=== PATIENT | female | born 1980 | race Caucasian/White ===

== ENCOUNTER 2021-08-20 14:14 | Emergency (ER) | payer SELFPAY ==
[2021-08-20 14:42] VITALS: BP 131/74; PULSE 104; RESP 22; TEMP 37.1; O2SAT 100
--- NOTE | 2021-08-20 14:43 | ED_ITS ---
HPI - Psych <Sandy Wilton Israel DO - Last Filed: 08/21/21 11:34> General Chief Complaint: Psychiatric Symptoms Stated Complaint: Found God, High BP Time Seen by Provider: 08/20/21 14:42 Source: patient and EMS ([facility]. BS 534 in field.) Mode of arrival: Ambulatory Limitations: no limitations History of Present Illness HPI Narrative: This is a 41-year-old female with no known medical history who lives in [place] who is visiting the area with her significant other. Patient was found rolling around in the road on [facility] by [facility] was contacted they states she had a put care glucose of 534 but otherwise had normal vital signs. They state patient's affect does not appear inappropriate but she could not really tell them why she was feeling the way she was today. Patient here in the department states that she feels fine. She states she found God and everybody seems upset about this. Patient states she does not have any thoughts of harming herself or others, she denies any hallucinations or auditory changes. She denies medical issues, denies prior surgeries. No known drug allergies. She denies tobacco, alcohol or illicit. She states she is been traveling through the area on a road trip with her significant other. Patient became agitated in triage ran out into the parking lot and PD was contacted to keep her from running out into traffic she was felt not able to keep herself safe. Review of Systems <Sandy Wilton Israel DO - Last Filed: 08/21/21 11:34> Review of Systems ROS Unobtainable: All systems reviewed & are unremarkable except as noted in HPI and below Exam <Sandy Israel DO - Last Filed: 08/21/21 11:34> Narrative Exam Narrative: GEN: Disheveled female, alert and oriented to self, patient is unsure of the town she is in but she did just come via [place] she states she was not aware of what town she was coming to, she does not answer to questions about the year or date, patient appears to be in moderate distress. Patient is slightly agitated and requires significant redirection at times. She has concise speech. Patient does appear to constantly pick at her scalp. HEENT: Atraumatic, pupils are equal round reactive to light, extraocular movements are intact, nares are clear, TMs are clear with no fluid, there is no conjunctival pallor. Throat is clear without any exudates, erythema, tonsillar enlargement or uvular deviation HEART: Regular rate and rhythm without murmur, clicks, rubs. LUNGS:Lungs clear to auscultation, no wheezes, rales, crackles, chest moves symmetrically ABD:bowel sounds normal, soft, non-tender, no guarding, rebound, rigidity, no masses noted, no hepatosplenomegaly :No CVA tenderness MSCL: Non-tender, no muscle atrophy, muscles strength 5/5 upper and lower extremities, full range of motion, normal gait NEURO:CN 2-12 intact, sensation normal PSYCH: Denies suicidal homicidal ideation, denies any mental health issues. Patient does appear somewhat agitated. Denies any hallucinations. She has slightly pressured speech, she has concise speech but is a little bit tangential in her thoughts but no perseverating or flight of ideas. Initial Vital Signs Initial Vital Signs: Vital Signs Temperature 98.7 F 08/20/21 14:42 Pulse Rate 104 H 08/20/21 14:42 Respiratory Rate 08/20/21 14:42 Blood Pressure 131/74 08/20/21 14:42 Pulse Oximetry 100 08/20/21 14:42 Oxygen Delivery Method 08/20/21 14:42 <Bobby Lora, DO - Last Filed: 08/21/21 18:44> Initial Vital Signs Initial Vital Signs: Vital Signs Temperature 98.7 F 08/20/21 14:42 Pulse Rate 104 H 08/20/21 14:42 Respiratory Rate 08/20/21 14:42 Blood Pressure 131/74 08/20/21 14:42 Pulse Oximetry 100 08/20/21 14:42 Oxygen Delivery Method 08/20/21 14:42 <Irina Boo, DO - Last Filed: 08/21/21 17:43> Initial Vital Signs Initial Vital Signs: Vital Signs Temperature 98.7 F 08/20/21 14:42 Pulse Rate 104 H 08/20/21 14:42 Respiratory Rate 08/20/21 14:42 Blood Pressure 131/74 08/20/21 14:42 Pulse Oximetry 100 08/20/21 14:42 Oxygen Delivery Method 08/20/21 14:42 Course <Sandy Israel, DO - Last Filed: 08/21/21 11:34> Orders Ordered: Discontinued Medications Lorazepam (Lorazepam 0.5 Mg Tablet) 1 mg PO NOW ONE Stop: 08/21/21 00:03 Last Admin: 08/21/21 00:06 Dose: 1 mg Documented By: RENA Olanzapine (Olanzapine Odt 10 Mg Tab) 10 mg PO NOW ONE Stop: 08/20/21 14:43 Last Admin: 08/20/21 14:46 Dose: 10 mg Documented By: JUAN Vital Signs Vital signs: Vital Signs - 8 hr 08/21/21 11:30 08/21/21 13:00 Temperature 99 F 98.7 F Pulse Rate 62 68 Respiratory Rate 20 20 Blood Pressure 101/60 120/67 Pulse Oximetry 99 99 Oxygen Delivery Method Room Air Room Air <Bobby Lora, DO - Last Filed: 08/21/21 18:44> Orders Ordered: Discontinued Medications Lorazepam (Lorazepam 0.5 Mg Tablet) 1 mg PO NOW ONE Stop: 08/21/21 00:03 Last Admin: 08/21/21 00:06 Dose: 1 mg Documented By: RENA Olanzapine (Olanzapine Odt 10 Mg Tab) 10 mg PO NOW ONE Stop: 08/20/21 14:43 Last Admin: 08/20/21 14:46 Dose: 10 mg Documented By: JUAN Vital Signs Vital signs: Vital Signs - 8 hr 08/21/21 11:30 08/21/21 13:00 Temperature 99 F 98.7 F Pulse Rate 62 68 Respiratory Rate 20 20 Blood Pressure 101/60 120/67 Pulse Oximetry 99 99 Oxygen Delivery Method Room Air Room Air <Irina Boo DO - Last Filed: 08/21/21 17:43> Orders Ordered: Discontinued Medications Lorazepam (Lorazepam 0.5 Mg Tablet) 1 mg PO NOW ONE Stop: 08/21/21 00:03 Last Admin: 08/21/21 00:06 Dose: 1 mg Documented By: RENA Olanzapine (Olanzapine Odt 10 Mg Tab) 10 mg PO NOW ONE Stop: 08/20/21 14:43 Last Admin: 08/20/21 14:46 Dose: 10 mg Documented By: JUAN Vital Signs Vital signs: Vital Signs - 8 hr 08/21/21 11:30 08/21/21 13:00 Temperature 99 F 98.7 F Pulse Rate 62 68 Respiratory Rate 20 20 Blood Pressure 101/60 120/67 Pulse Oximetry 99 99 Oxygen Delivery Method Room Air Room Air MDM - Psych <Sandy Israel, DO - Last Filed: 08/21/21 11:34> Lab Data Result diagrams: 08/20/21 15:09 08/20/21 15:09 Labs: Lab Results 08/20/21 08/20/21 08/20/21 Range/Units 15:09 15:09 15:09 WBC 7.0 (4.5-11.0) X10^3/uL RBC 3.83 L (4.0-5.2) X10^6/uL Hgb 9.8 L (12.0-16.0) g/dL Hct 30.3 L (36-46) % MCV 79.1 L (80-100) fL MCH 25.6 L (26-34) PG MCHC 32.4 (30-36) % RDW 16.5 H (11.6-14.8) % Plt Count 352 (150-400) X10^3/uL Neut % (Auto) 68.5 (50-75) % Lymph % (Auto) 20.4 L (25-40) % [place] % (Auto) 9.9 (3-14) % Eos % (Auto) 0.4 L (2-4) % Baso % (Auto) 0.8 (0-2) % Neut # (Auto) 4800 (8838-1231) /uL Lymph # (Auto) 1400 (9855-9535) /uL [place] # (Auto) 700 (0-900) /uL Eos # (Auto) 0 (0-450) /uL Baso # (Auto) 100 (0-100) /uL Sodium 138 (137-145) mmol/L Potassium 3.4 (3.4-5.1) mmol/L Chloride 103 (98-107) mmol/L Carbon Dioxide 27 (22-32) mmol/L BUN 10 (7-17) mg/dL Creatinine 0.78 (0.52-1.04) mg/dL Estimated GFR > 60 (>60) mL/min BUN/Creatinine Ratio 12.8 (6-22) Glucose 135 H (70-100) mg/dL Calcium 9.3 (8.4-10.2) mg/dL Magnesium (1.6-2.3) mg/dL Total Bilirubin 0.4 (0.2-1.3) mg/dL AST 31 (14-36) IU/L ALT 19 (<35) IU/L Alkaline Phosphatase 55 (38-126) U/L Total Creatine Kinase (30-135) U/L Total Protein 7.3 (6.3-8.2) g/dL Albumin 4.6 (3.5-5.0) g/dL Globulin 2.7 (1.7-4.1) g/dL Albumin/Globulin Ratio 1.7 (1.0-2.8) TSH 1.30 (0.47-4.68) uIU/mL Serum , Qual (Negative) Urine RBC (0-5/HPF) Urine WBC (0-5/HPF) Ur Squamous Epith Cells (0-5/HPF) Amorphous Sediment Urine Bacteria (None) Urine Mucus (Negative) Ur Culture Indicated? Salicylates < 1.0 (<20) mg/dL U Opiates 300ng/mL cut (Negative) Ur Oxycodone Screen (Negative) Urine Methadone Screen (Negative) Acetaminophen < 10 (10-30) ug/mL Ur Barbiturates Screen (Negative) U Tricyclic Antidepress (Negative) Ur Phencyclidine Scrn (Negative) Ur Amphetamines Screen (Negative) U Methamphetamines Scrn (Negative) Ur MDMA Scrn (Ecstasy) (Negative) U Benzodiazepines Scrn (Negative) Urine Cocaine Screen (Negative) U Marijuana (THC) Screen (Negative) Ethyl Alcohol < 10 ( - 10) mg/dL SARS-CoV-2 (PCR) (Negative) 08/20/21 08/20/21 08/20/21 Range/Units 15:09 15:09 15:23 WBC (4.5-11.0) X10^3/uL RBC (4.0-5.2) X10^6/uL Hgb (12.0-16.0) g/dL Hct (36-46) % MCV (80-100) fL MCH (26-34) PG MCHC (30-36) % RDW (11.6-14.8) % Plt Count (150-400) X10^3/uL Neut % (Auto) (50-75) % Lymph % (Auto) (25-40) % [place] % (Auto) (3-14) % Eos % (Auto) (2-4) % Baso % (Auto) (0-2) % Neut # (Auto) (2321-4344) /uL Lymph # (Auto) (2815-8169) /uL [place] # (Auto) (0-900) /uL Eos # (Auto) (0-450) /uL Baso # (Auto) (0-100) /uL Sodium (137-145) mmol/L Potassium (3.4-5.1) mmol/L Chloride (98-107) mmol/L Carbon Dioxide (22-32) mmol/L BUN (7-17) mg/dL Creatinine (0.52-1.04) mg/dL Estimated GFR (>60) mL/min BUN/Creatinine Ratio (6-22) Glucose (70-100) mg/dL Calcium (8.4-10.2) mg/dL Magnesium 1.9 (1.6-2.3) mg/dL Total Bilirubin (0.2-1.3) mg/dL AST (14-36) IU/L ALT (<35) IU/L Alkaline Phosphatase (38-126) U/L Total Creatine Kinase 382 H (30-135) U/L Total Protein (6.3-8.2) g/dL Albumin (3.5-5.0) g/dL Globulin (1.7-4.1) g/dL Albumin/Globulin Ratio (1.0-2.8) TSH (0.47-4.68) uIU/mL Serum , Qual Negative (Negative) Urine RBC (0-5/HPF) Urine WBC (0-5/HPF) Ur Squamous Epith Cells (0-5/HPF) Amorphous Sediment Urine Bacteria (None) Urine Mucus (Negative) Ur Culture Indicated? Salicylates (<20) mg/dL U Opiates 300ng/mL cut Negative (Negative) Ur Oxycodone Screen Negative (Negative) Urine Methadone Screen Negative (Negative) Acetaminophen (10-30) ug/mL Ur Barbiturates Screen Negative (Negative) U Tricyclic Antidepress Negative (Negative) Ur Phencyclidine Scrn Negative (Negative) Ur Amphetamines Screen Negative (Negative) U Methamphetamines Scrn Negative (Negative) Ur MDMA Scrn (Ecstasy) Negative (Negative) U Benzodiazepines Scrn Negative (Negative) Urine Cocaine Screen Negative (Negative) U Marijuana (THC) Screen Negative (Negative) Ethyl Alcohol ( - 10) mg/dL SARS-CoV-2 (PCR) (Negative) 08/20/21 08/20/21 Range/Units 15:23 20:17 WBC (4.5-11.0) X10^3/uL RBC (4.0-5.2) X10^6/uL Hgb (12.0-16.0) g/dL Hct (36-46) % MCV (80-100) fL MCH (26-34) PG MCHC (30-36) % RDW (11.6-14.8) % Plt Count (150-400) X10^3/uL Neut % (Auto) (50-75) % Lymph % (Auto) (25-40) % [place] % (Auto) (3-14) % Eos % (Auto) (2-4) % Baso % (Auto) (0-2) % Neut # (Auto) (4376-8702) /uL Lymph # (Auto) (0106-0774) /uL [place] # (Auto) (0-900) /uL Eos # (Auto) (0-450) /uL Baso # (Auto) (0-100) /uL Sodium (137-145) mmol/L Potassium (3.4-5.1) mmol/L Chloride (98-107) mmol/L Carbon Dioxide (22-32) mmol/L BUN (7-17) mg/dL Creatinine (0.52-1.04) mg/dL Estimated GFR (>60) mL/min BUN/Creatinine Ratio (6-22) Glucose (70-100) mg/dL Calcium (8.4-10.2) mg/dL Magnesium (1.6-2.3) mg/dL Total Bilirubin (0.2-1.3) mg/dL AST (14-36) IU/L ALT (<35) IU/L Alkaline Phosphatase (38-126) U/L Total Creatine Kinase (30-135) U/L Total Protein (6.3-8.2) g/dL Albumin (3.5-5.0) g/dL Globulin (1.7-4.1) g/dL Albumin/Globulin Ratio (1.0-2.8) TSH (0.47-4.68) uIU/mL Serum , Qual (Negative) Urine RBC None seen (0-5/HPF) Urine WBC 1-5/hpf (0-5/HPF) Ur Squamous Epith Cells 10-30 /hpf H (0-5/HPF) Amorphous Sediment 1+ Urine Bacteria Few (2-10) H (None) Urine Mucus 1+ H (Negative) Ur Culture Indicated? Cult not indicated Salicylates (<20) mg/dL U Opiates 300ng/mL cut (Negative) Ur Oxycodone Screen (Negative) Urine Methadone Screen (Negative) Acetaminophen (10-30) ug/mL Ur Barbiturates Screen (Negative) U Tricyclic Antidepress (Negative) Ur Phencyclidine Scrn (Negative) Ur Amphetamines Screen (Negative) U Methamphetamines Scrn (Negative) Ur MDMA Scrn (Ecstasy) (Negative) U Benzodiazepines Scrn (Negative) Urine Cocaine Screen (Negative) U Marijuana (THC) Screen (Negative) Ethyl Alcohol ( - 10) mg/dL SARS-CoV-2 (PCR) Negative (Negative) Point of Care Testing Test Results Negative Glucose POC 133 Urine Dip Bedside Urine Glucose Negative Bedside Urine Bilirubin - Negative Bedside Urine Ketone - Negative Urine Specific [place] 1.015 Bedside Urine Occult Blood - Negative Bedside Urine pH 6.5 Bedside Urine Protein +/- 15 Bedside Urine Urobilinogen - Negative Bedside Urine Nitrite - Negative Bedside Urine Leukocytes - Negative Esterase MDM Narrative Medical decision making narrative: This is a 41-year-old female who states she found God and was forced to come here. She was found by EMS in the middle of the road rolling around, they state her glucose is elevated at 500 felt likely this was air as her glucose here in the 130s on serum which is much more appropriate. Patient unclear if she is having true hallucinations but definitely having magical medical type thinking abruptly which is very atypical and concern for safety in terms of being gravely disabled. Patient did take Zyprexa but only under duress which does seem to be somewhat helpful. She has anemia but no other clear cause for her symptoms today, her urine drug screen is negative in both she and her significant other Jonathan deny ingestions. Patient lives in [place] they have been traveling for the past 3 months in a van and are somewhat isolated from other individuals. The boyfriend states that her brother and father are both and she does not have contact with her mother so I do not have other contacts available but they have been dating for the boyfriend for 6 years. DC are was dispatched evaluated patient would like to re-evaluate this is evaluation about an hour after patient has had some more contact with her boyfriend. Boyfriend was in t he department for about 5-10 minutes the situation escalated and they both began cursing and yelling at each other they were he went back to the waiting room. Patient signed out to Dr. Lora while awaiting final disposition, patient has been redirectable but does not wish to be here. <Bobby Lora, DO - Last Filed: 08/21/21 18:44> Lab Data Labs: Lab Results 08/20/21 08/20/21 08/20/21 Range/Units 15:09 15:09 15:09 WBC 7.0 (4.5-11.0) X10^3/uL RBC 3.83 L (4.0-5.2) X10^6/uL Hgb 9.8 L (12.0-16.0) g/dL Hct 30.3 L (36-46) % MCV 79.1 L (80-100) fL MCH 25.6 L (26-34) PG MCHC 32.4 (30-36) % RDW 16.5 H (11.6-14.8) % Plt Count 352 (150-400) X10^3/uL Neut % (Auto) 68.5 (50-75) % Lymph % (Auto) 20.4 L (25-40) % [place] % (Auto) 9.9 (3-14) % Eos % (Auto) 0.4 L (2-4) % Baso % (Auto) 0.8 (0-2) % Neut # (Auto) 4800 (3085-5992) /uL Lymph # (Auto) 1400 (1057-4508) /uL [place] # (Auto) 700 (0-900) /uL Eos # (Auto) 0 (0-450) /uL Baso # (Auto) 100 (0-100) /uL Sodium 138 (137-145) mmol/L Potassium 3.4 (3.4-5.1) mmol/L Chloride 103 (98-107) mmol/L Carbon Dioxide 27 (22-32) mmol/L BUN 10 (7-17) mg/dL Creatinine 0.78 (0.52-1.04) mg/dL Estimated GFR > 60 (>60) mL/min BUN/Creatinine Ratio 12.8 (6-22) Glucose 135 H (70-100) mg/dL Calcium 9.3 (8.4-10.2) mg/dL Magnesium (1.6-2.3) mg/dL Total Bilirubin 0.4 (0.2-1.3) mg/dL AST 31 (14-36) IU/L ALT 19 (<35) IU/L Alkaline Phosphatase 55 (38-126) U/L Total Creatine Kinase (30-135) U/L Total Protein 7.3 (6.3-8.2) g/dL Albumin 4.6 (3.5-5.0) g/dL Globulin 2.7 (1.7-4.1) g/dL Albumin/Globulin Ratio 1.7 (1.0-2.8) TSH 1.30 (0.47-4.68) uIU/mL Serum , Qual (Negative) Urine RBC (0-5/HPF) Urine WBC (0-5/HPF) Ur Squamous Epith Cells (0-5/HPF) Amorphous Sediment Urine Bacteria (None) Urine Mucus (Negative) Ur Culture Indicated? Salicylates < 1.0 (<20) mg/dL U Opiates 300ng/mL cut (Negative) Ur Oxycodone Screen (Negative) Urine Methadone Screen (Negative) Acetaminophen < 10 (10-30) ug/mL Ur Barbiturates Screen (Negative) U Tricyclic Antidepress (Negative) Ur Phencyclidine Scrn (Negative) Ur Amphetamines Screen (Negative) U Methamphetamines Scrn (Negative) Ur MDMA Scrn (Ecstasy) (Negative) U Benzodiazepines Scrn (Negative) Urine Cocaine Screen (Negative) U Marijuana (THC) Screen (Negative) Ethyl Alcohol < 10 ( - 10) mg/dL SARS-CoV-2 (PCR) (Negative) 08/20/21 08/20/21 08/20/21 Range/Units 15:09 15:09 15:23 WBC (4.5-11.0) X10^3/uL RBC (4.0-5.2) X10^6/uL Hgb (12.0-16.0) g/dL Hct (36-46) % MCV (80-100) fL MCH (26-34) PG MCHC (30-36) % RDW (11.6-14.8) % Plt Count (150-400) X10^3/uL Neut % (Auto) (50-75) % Lymph % (Auto) (25-40) % [place] % (Auto) (3-14) % Eos % (Auto) (2-4) % Baso % (Auto) (0-2) % Neut # (Auto) (7794-0512) /uL Lymph # (Auto) (1529-0971) /uL [place] # (Auto) (0-900) /uL Eos # (Auto) (0-450) /uL Baso # (Auto) (0-100) /uL Sodium (137-145) mmol/L Potassium (3.4-5.1) mmol/L Chloride (98-107) mmol/L Carbon Dioxide (22-32) mmol/L BUN (7-17) mg/dL Creatinine (0.52-1.04) mg/dL Estimated GFR (>60) mL/min BUN/Creatinine Ratio (6-22) Glucose (70-100) mg/dL Calcium (8.4-10.2) mg/dL Magnesium 1.9 (1.6-2.3) mg/dL Total Bilirubin (0.2-1.3) mg/dL AST (14-36) IU/L ALT (<35) IU/L Alkaline Phosphatase (38-126) U/L Total Creatine Kinase 382 H (30-135) U/L Total Protein (6.3-8.2) g/dL Albumin (3.5-5.0) g/dL Globulin (1.7-4.1) g/dL Albumin/Globulin Ratio (1.0-2.8) TSH (0.47-4.68) uIU/mL Serum , Qual Negative (Negative) Urine RBC (0-5/HPF) Urine WBC (0-5/HPF) Ur Squamous Epith Cells (0-5/HPF) Amorphous Sediment Urine Bacteria (None) Urine Mucus (Negative) Ur Culture Indicated? Salicylates (<20) mg/dL U Opiates 300ng/mL cut Negative (Negative) Ur Oxycodone Screen Negative (Negative) Urine Methadone Screen Negative (Negative) Acetaminophen (10-30) ug/mL Ur Barbiturates Screen Negative (Negative) U Tricyclic Antidepress Negative (Negative) Ur Phencyclidine Scrn Negative (Negative) Ur Amphetamines Screen Negative (Negative) U Methamphetamines Scrn Negative (Negative) Ur MDMA Scrn (Ecstasy) Negative (Negative) U Benzodiazepines Scrn Negative (Negative) Urine Cocaine Screen Negative (Negative) U Marijuana (THC) Screen Negative (Negative) Ethyl Alcohol ( - 10) mg/dL SARS-CoV-2 (PCR) (Negative) 08/20/21 08/20/21 Range/Units 15:23 20:17 WBC (4.5-11.0) X10^3/uL RBC (4.0-5.2) X10^6/uL Hgb (12.0-16.0) g/dL Hct (36-46) % MCV (80-100) fL MCH (26-34) PG MCHC (30-36) % RDW (11.6-14.8) % Plt Count (150-400) X10^3/uL Neut % (Auto) (50-75) % Lymph % (Auto) (25-40) % [place] % (Auto) (3-14) % Eos % (Auto) (2-4) % Baso % (Auto) (0-2) % Neut # (Auto) (5097-7833) /uL Lymph # (Auto) (3825-9144) /uL [place] # (Auto) (0-900) /uL Eos # (Auto) (0-450) /uL Baso # (Auto) (0-100) /uL Sodium (137-145) mmol/L Potassium (3.4-5.1) mmol/L Chloride (98-107) mmol/L Carbon Dioxide (22-32) mmol/L BUN (7-17) mg/dL Creatinine (0.52-1.04) mg/dL Estimated GFR (>60) mL/min BUN/Creatinine Ratio (6-22) Glucose (70-100) mg/dL Calcium (8.4-10.2) mg/dL Magnesium (1.6-2.3) mg/dL Total Bilirubin (0.2-1.3) mg/dL AST (14-36) IU/L ALT (<35) IU/L Alkaline Phosphatase (38-126) U/L Total Creatine Kinase (30-135) U/L Total Protein (6.3-8.2) g/dL Albumin (3.5-5.0) g/dL Globulin (1.7-4.1) g/dL Albumin/Globulin Ratio (1.0-2.8) TSH (0.47-4.68) uIU/mL Serum , Qual (Negative) Urine RBC None seen (0-5/HPF) Urine WBC 1-5/hpf (0-5/HPF) Ur Squamous Epith Cells 10-30 /hpf H (0-5/HPF) Amorphous Sediment 1+ Urine Bacteria Few (2-10) H (None) Urine Mucus 1+ H (Negative) Ur Culture Indicated? Cult not indicated Salicylates (<20) mg/dL U Opiates 300ng/mL cut (Negative) Ur Oxycodone Screen (Negative) Urine Methadone Screen (Negative) Acetaminophen (10-30) ug/mL Ur Barbiturates Screen (Negative) U Tricyclic Antidepress (Negative) Ur Phencyclidine Scrn (Negative) Ur Amphetamines Screen (Negative) U Methamphetamines Scrn (Negative) Ur MDMA Scrn (Ecstasy) (Negative) U Benzodiazepines Scrn (Negative) Urine Cocaine Screen (Negative) U Marijuana (THC) Screen (Negative) Ethyl Alcohol ( - 10) mg/dL SARS-CoV-2 (PCR) Negative (Negative) Point of Care Testing Test Results Negative Glucose POC 133 Urine Dip Bedside Urine Glucose Negative Bedside Urine Bilirubin - Negative Bedside Urine Ketone - Negative Urine Specific [place] 1.015 Bedside Urine Occult Blood - Negative Bedside Urine pH 6.5 Bedside Urine Protein +/- 15 Bedside Urine Urobilinogen - Negative Bedside Urine Nitrite - Negative Bedside Urine Leukocytes - Negative Esterase MDM Narrative Medical decision making narrative: This is a 41-year-old female who states she found God and was forced to come here. She was found by EMS in the middle of the road rolling around, they state her glucose is elevated at 500 felt likely this was air as her glucose here in the 130s on serum which is much more appropriate. Patient unclear if she is having true hallucinations but definitely having magical medical type thinking abruptly which is very atypical and concern for safety in terms of being gravely disabled. Patient did take Zyprexa but only under duress which does seem to be somewhat helpful. She has anemia but no other clear cause for her symptoms today, her urine drug screen is negative in both she and her significant other Jonathan deny ingestions. Patient lives in [place] they have been traveling for the past 3 months in a van and are somewhat isolated from other individuals. The boyfriend states that her brother and father are both and she does not have contact with her mother so I do not have other contacts available but they have been dating for the boyfriend for 6 years. DC are was dispatched evaluated patient would like to re-evaluate this is evaluation about an hour after patient has had some more contact with her boyfriend. Boyfriend was in the department for about 5-10 minutes the situation escalated and they both began cursing and yelling at each other they were he went back to the waiting room. Patient signed out to Dr. Lora while awaiting final disposition, patient has been redirectable but does not wish to be here. Dr Lora: Received turned over. Review patient's history and physical exam. Patient has been calm although that 1 point she did try to leave the emergency department. She was easily directable afterwards. She was given 1 mg of Ativan which she took without incident. Patient has been sleeping all evening. I had conversations with DCR who stated that the patient does need to be detained. There was some concern between the patient and the DCR about her ability to maintain safety upon discharge. DCR has been working on placement. Patient continues to be medically cleared. Care turned over to Dr. Boo at change of shift to continue to follow-up and disposition. <Irnia Boo, DO - Last Filed: 08/21/21 17:43> Lab Data Labs: Lab Results 08/20/21 08/20/21 08/20/21 Range/Units 15:09 15:09 15:09 WBC 7.0 (4.5-11.0) X10^3/uL RBC 3.83 L (4.0-5.2) X10^6/uL Hgb 9.8 L (12.0-16.0) g/dL Hct 30.3 L (36-46) % MCV 79.1 L (80-100) fL MCH 25.6 L (26-34) PG MCHC 32.4 (30-36) % RDW 16.5 H (11.6-14.8) % Plt Count 352 (150-400) X10^3/uL Neut % (Auto) 68.5 (50-75) % Lymph % (Auto) 20.4 L (25-40) % [place] % (Auto) 9.9 (3-14) % Eos % (Auto) 0.4 L (2-4) % Baso % (Auto) 0.8 (0-2) % Neut # (Auto) 4800 (2039-5172) /uL Lymph # (Auto) 1400 (0588-9569) /uL [place] # (Auto) 700 (0-900) /uL Eos # (Auto) 0 (0-450) /uL Baso # (Auto) 100 (0-100) /uL Sodium 138 (137-145) mmol/L Potassium 3.4 (3.4-5.1) mmol/L Chloride 103 (98-107) mmol/L Carbon Dioxide 27 (22-32) mmol/L BUN 10 (7-17) mg/dL Creatinine 0.78 (0.52-1.04) mg/dL Estimated GFR > 60 (>60) mL/min BUN/Creatinine Ratio 12.8 (6-22) Glucose 135 H (70-100) mg/dL Calcium 9.3 (8.4-10.2) mg/dL Magnesium (1.6-2.3) mg/dL Total Bilirubin 0.4 (0.2-1.3) mg/dL AST 31 (14-36) IU/L ALT 19 (<35) IU/L Alkaline Phosphatase 55 (38-126) U/L Total Creatine Kinase (30-135) U/L Total Protein 7.3 (6.3-8.2) g/dL Albumin 4.6 (3.5-5.0) g/dL Globulin 2.7 (1.7-4.1) g/dL Albumin/Globulin Ratio 1.7 (1.0-2.8) TSH 1.30 (0.47-4.68) uIU/mL Serum , Qual (Negative) Urine RBC (0-5/HPF) Urine WBC (0-5/HPF) Ur Squamous Epith Cells (0-5/HPF) Amorphous Sediment Urine Bacteria (None) Urine Mucus (Negative) Ur Culture Indicated? Salicylates < 1.0 (<20) mg/dL U Opiates 300ng/mL cut (Negative) Ur Oxycodone Screen (Negative) Urine Methadone Screen (Negative) Acetaminophen < 10 (10-30) ug/mL Ur Barbiturates Screen (Negative) U Tricyclic Antidepress (Negative) Ur Phencyclidine Scrn (Negative) Ur Amphetamines Screen (Negative) U Methamphetamines Scrn (Negative) Ur MDMA Scrn (Ecstasy) (Negative) U Benzodiazepines Scrn (Negative) Urine Cocaine Screen (Negative) U Marijuana (THC) Screen (Negative) Ethyl Alcohol < 10 ( - 10) mg/dL SARS-CoV-2 (PCR) (Negative) 08/20/21 08/20/21 08/20/21 Range/Units 15:09 15:09 15:23 WBC (4.5-11.0) X10^3/uL RBC (4.0-5.2) X10^6/uL Hgb (12.0-16.0) g/dL Hct (36-46) % MCV (80-100) fL MCH (26-34) PG MCHC (30-36) % RDW (11.6-14.8) % Plt Count (150-400) X10^3/uL Neut % (Auto) (50-75) % Lymph % (Auto) (25-40) % [place] % (Auto) (3-14) % Eos % (Auto) (2-4) % Baso % (Auto) (0-2) % Neut # (Auto) (2089-5329) /uL Lymph # (Auto) (4412-8999) /uL Columbia # (Auto) (0-900) /uL Eos # (Auto) (0-450) /uL Baso # (Auto) (0-100) /uL Sodium (137-145) mmol/L Potassium (3.4-5.1) mmol/L Chloride (98-107) mmol/L Carbon Dioxide (22-32) mmol/L BUN (7-17) mg/dL Creatinine (0.52-1.04) mg/dL Estimated GFR (>60) mL/min BUN/Creatinine Ratio (6-22) Glucose (70-100) mg/dL Calcium (8.4-10.2) mg/dL Magnesium 1.9 (1.6-2.3) mg/dL Total Bilirubin (0.2-1.3) mg/dL AST (14-36) IU/L ALT (<35) IU/L Alkaline Phosphatase (38-126) U/L Total Creatine Kinase 382 H (30-135) U/L Total Protein (6.3-8.2) g/dL Albumin (3.5-5.0) g/dL Globulin (1.7-4.1) g/dL Albumin/Globulin Ratio (1.0-2.8) TSH (0.47-4.68) uIU/mL Serum , Qual Negative (Negative) Urine RBC (0-5/HPF) Urine WBC (0-5/HPF) Ur Squamous Epith Cells (0-5/HPF) Amorphous Sediment Urine Bacteria (None) Urine Mucus (Negative) Ur Culture Indicated? Salicylates (<20) mg/dL U Opiates 300ng/mL cut Negative (Negative) Ur Oxycodone Screen Negative (Negative) Urine Methadone Screen Negative (Negative) Acetaminophen (10-30) ug/mL Ur Barbiturates Screen Negative (Negative) U Tricyclic Antidepress Negative (Negative) Ur Phencyclidine Scrn Negative (Negative) Ur Amphetamines Screen Negative (Negative) U Methamphetamines Scrn Negative (Negative) Ur MDMA Scrn (Ecstasy) Negative (Negative) U Benzodiazepines Scrn Negative (Negative) Urine Cocaine Screen Negative (Negative) U Marijuana (THC) Screen Negative (Negative) Ethyl Alcohol ( - 10) mg/dL SARS-CoV-2 (PCR) (Negative) 08/20/21 08/20/21 Range/Units 15:23 20:17 WBC (4.5-11.0) X10^3/uL RBC (4.0-5.2) X10^6/uL Hgb (12.0-16.0) g/dL Hct (36-46) % MCV (80-100) fL MCH (26-34) PG MCHC (30-36) % RDW (11.6-14.8) % Plt Count (150-400) X10^3/uL Neut % (Auto) (50-75) % Lymph % (Auto) (25-40) % [place] % (Auto) (3-14) % Eos % (Auto) (2-4) % Baso % (Auto) (0-2) % Neut # (Auto) (0563-9822) /uL Lymph # (Auto) (4619-7463) /uL Columbia # (Auto) (0-900) /uL Eos # (Auto) (0-450) /uL Baso # (Auto) (0-100) /uL Sodium (137-145) mmol/L Potassium (3.4-5.1) mmol/L Chloride (98-107) mmol/L Carbon Dioxide (22-32) mmol/L BUN (7-17) mg/dL Creatinine (0.52-1.04) mg/dL Estimated GFR (>60) mL/min BUN/Creatinine Ratio (6-22) Glucose (70-100) mg/dL Calcium (8.4-10.2) mg/dL Magnesium (1.6-2.3) mg/dL Total Bilirubin (0.2-1.3) mg/dL AST (14-36) IU/L ALT (<35) IU/L Alkaline Phosphatase (38-126) U/L Total Creatine Kinase (30-135) U/L Total Protein (6.3-8.2) g/dL Albumin (3.5-5.0) g/dL Globulin (1.7-4.1) g/dL Albumin/Globulin Ratio (1.0-2.8) TSH (0.47-4.68) uIU/mL Serum , Qual (Negative) Urine RBC None seen (0-5/HPF) Urine WBC 1-5/hpf (0-5/HPF) Ur Squamous Epith Cells 10-30 /hpf H (0-5/HPF) Amorphous Sediment 1+ Urine Bacteria Few (2-10) H (None) Urine Mucus 1+ H (Negative) Ur Culture Indicated? Cult not indicated Salicylates (<20) mg/dL U Opiates 300ng/mL cut (Negative) Ur Oxycodone Screen (Negative) Urine Methadone Screen (Negative) Acetaminophen (10-30) ug/mL Ur Barbiturates Screen (Negative) U Tricyclic Antidepress (Negative) Ur Phencyclidine Scrn (Negative) Ur Amphetamines Screen (Negative) U Methamphetamines Scrn (Negative) Ur MDMA Scrn (Ecstasy) (Negative) U Benzodiazepines Scrn (Negative) Urine Cocaine Screen (Negative) U Marijuana (THC) Screen (Negative) Ethyl Alcohol ( - 10) mg/dL SARS-CoV-2 (PCR) Negative (Negative) Point of Care Testing Test Results Negative Glucose POC 133 Urine Dip Bedside Urine Glucose Negative Bedside Urine Bilirubin - Negative Bedside Urine Ketone - Negative Urine Specific [place] 1.015 Bedside Urine Occult Blood - Negative Bedside Urine pH 6.5 Bedside Urine Protein +/- 15 Bedside Urine Urobilinogen - Negative Bedside Urine Nitrite - Negative Bedside Urine Leukocytes - Negative Esterase Imaging Data CT scan - head: Radiologist's Impression: Signed Patient: Chloe Sharp MR#: [id number] : 1980 Acct:[id number] Age/Sex: 41 / F Date of Service: 08/21/21 Loc: ED Accession Number: [id number] ?? Procedure: CT head/brain wo con Ordering Provider: Irina Boo D.O. PROCEDURE:? CT HEAD/BRAIN WO CON ? INDICATIONS:? Psychotic break ? TECHNIQUE:? Noncontrast 4.5 mm thick angled axial sections acquired from the foramen magnum to the vertex, with coronal and sagittal reformats.? For radiation dose reduction, the following was used:? automated exposure control, adjustment of mA and/or kV according to patient size.? ? COMPARISON:? None. ? FINDINGS:? Image quality:? Excellent.? ? CSF spaces:? Basal cisterns are patent.? No extra-axial fluid collections.? Ventricles are normal in size and shape.? ? Brain:? No midline shift.? No intracranial masses or hemorrhage.? Hernández-white matter interface is normal.? ? Skull and face:? Calvarium and visualized facial bones are intact, without suspicious lesions.? ? Sinuses:? Visualized sinuses and mastoids are clear.? ? IMPRESSION:? Normal head CT. ? Dictated by: Ethan Adkins M.D. on 08/21/2021 at 9:36 ? ? Approved by: Ethan Adkins M.D. on 08/21/2021 at 9:39 ? MDM Narrative Medical decision making narrative: This is a 41-year-old female who states she found God and was forced to come here. She was found by EMS in the middle of the road rolling around, they state her glucose is elevated at 500 felt likely this was air as her glucose here in the 130s on serum which is much more appropriate. Patient unclear if she is having true hallucinations but definitely having magical medical type thinking abruptly which is very atypical and concern for safety in terms of being gravely disabled. Patient did take Zyprexa but only under duress which does seem to be somewhat helpful. She has anemia but no other clear cause for her symptoms today, her urine drug screen is negative in both she and her significant other Jonathan deny ingestions. Patient lives in [place] they have been traveling for the past 3 months in a van and are somewhat isolated from other individuals. The boyfriend states that her brother and father are both and she does not have contact with her mother so I do not have other contacts available but they have been dating for the boyfriend for 6 years. DC are was dispatched evaluated patient would like to re-evaluate this is evaluation about an hour after patient has had some more contact with her boyfriend. Boyfriend was in the department for about 5-10 minutes the situation escalated and they both began cursing and yelling at each other they were he went back to the waiting room. Patient signed out to Dr. Lora while awaiting final disposition, patient has been redirectable but does not wish to be here. Dr Lora: Received turned over. Review patient's history and physical exam. Patient has been calm although that 1 point she did try to leave the emergency department. She was easily directable afterwards. She was given 1 mg of Ativan which she took without incident. Patient has been sleeping all evening. I had conversations with DCR who stated that the patient does need to be detained. There was some concern between the patient and the DCR about her ability to maintain safety upon discharge. DCR has been working on placement. Patient continues to be medically cleared. Care turned over to Dr. Boo at change of shift to continue to follow-up and disposition. Rajeev-patient seen and evaluated by myself. She remains cooperative. She does not remember everything that happened. She denies taking any hallucinogenic Cerner other drugs. Head CT was requested by psychiatry for except in. It is negative. She states that she did feel alive when she laid in the street last night. Patient is accepted at [facility] Discharge Plan Departure Patient Disposition: [facility] Clinical Impression: Acute psychosis Referrals: Miscellaneous,DoctorMD [Primary Care Provider] -
[2021-08-20] MEDS: OLANZapine ODT 10 MG TAB PO (14:46)
[2021-08-20 15:53] LABS: Add Manual Diff / Slide Review NO; Basophils Absolute Auto 100 /uL (0-100); Basophils Percent Auto 0.8 % (0-2); Eosinophils Absolute Auto 0 /uL (0-450); Eosinophils Percent Auto 0.4 % (2-4); Hematocrit 30.3 % (36-46); Hemoglobin 9.8 g/dL (12.0-16.0); Lymphocytes Absolute Auto 1400 /uL (1100-4500); Lymphocytes Percent Auto 20.4 % (25-40); Mean Corpuscular HGB Conc 32.4 % (30-36); Mean Corpuscular Hemoglobin 25.6 PG (26-34); Mean Corpuscular Volume 79.1 fL (80-100); Monocytes Absolute Auto 700 /uL (0-900); Monocytes Percent Auto 9.9 % (3-14); Neutrophils Absolute Auto 4800 /uL (1500-7000); Neutrophils Percent Auto 68.5 % (50-75); Platelet Count 352 X10^3/uL (150-400); Red Blood Cell Count 3.83 X10^6/uL (4.0-5.2); Red Cell Distribution Width 16.5 % (11.6-14.8)
[2021-08-20 15:56] LABS: RBC Urine None Seen (0-5/HPF); WBC Urine 1-5/HPF (0-5/HPF)
[2021-08-20 15:57] LABS: Amorphous Sediment Urine 1+; Bacteria Urine Few (2-10); Culture Indicated Urine Cult Not Indicated; Mucus Urine 1+ (Negative); Squamous Epithelial Cell Urine 10-30 /HPF (0-5/HPF)
[2021-08-20 15:57] LABS: Acetaminophen < 10 ug/mL (10-30); Alanine Aminotransferase 19 IU/L (<35); Albumin 4.6 g/dL (3.5-5.0); Albumin Globulin Ratio 1.7 (1.0-2.8); Alkaline Phosphatase 55 U/L (38-126); Aspartate Aminotransferase 31 IU/L (14-36); BUN Creatinine Ratio 12.8 (6-22); Bilirubin Total 0.4 mg/dL (0.2-1.3); Blood Urea Nitrogen 10 mg/dL (7-17); Calcium 9.3 mg/dL (8.4-10.2); Carbon Dioxide 27 mmol/L (22-32); Chloride 103 mmol/L (98-107); Estimated Glomerular Filt Rate > 60 mL/min (>60); Ethanol (ETOH) < 10 mg/dL; Globulin 2.7 g/dL (1.7-4.1); Glucose 135 mg/dL (70-100); HEMOLYSIS < 15 (0-50); Potassium 3.4 mmol/L (3.4-5.1); Salicylate < 1.0 mg/dL (<20); Sodium 138 mmol/L (137-145); Total Protein 7.3 g/dL (6.3-8.2)
[2021-08-20 16:16] LABS: UR Morphine/Opiate cutoff 300 Negative (Negative); Ur Creatinine Normal (Normal); Ur Specific Gravity Normal (Normal); Urine Amphetamines Negative (Negative); Urine Barbiturates Negative (Negative); Urine Benzodiazepines Negative (Negative); Urine Cocaine Negative (Negative); Urine MDMA Negative (Negative); Urine Methadone Negative (Negative); Urine Methamphetamines Negative (Negative); Urine Oxycodone Negative (Negative); Urine Phencyclidine Negative (Negative); Urine Tetrahydrocannabinol Negative (Negative); Urine Tricyclic Antidepressant Negative (Negative); Urine pH Normal (Normal)
[2021-08-20 16:25] LABS: Pregnancy Test Serum,Qual Negative (Negative)
--- NOTE | 2021-08-20 20:21 | PC.NURSE ---
Boyfriend at bedside
--- NOTE | 2021-08-20 20:29 | PC.NURSE ---
Pt's partner Jonathan came into room to see pt. Jonathan stated that DCR suggested he come back to see her. Pt and Jonathan got into a [place] and [place] became very agitated. She was telling Jonathan that she [place] and Jonathan was raising his voice at her and cursing saying that those people are the richest people on the [facility], they don't know a thing about life and other statements to similar effect. The pt stated that he was wrong and she needed the energy on those beaches. LINDA Myles suggested that I ask Jonathan to step out for the moment so we could ask pt how she felt about his visit. When I asked pt how she felt she stated that her and Jonathan have the same mind but not the same soul and she just wants to sleep for now. LINDA Myles escorted Jonathan to the waiting room and the pt stated again that she did not want to visit with him for now.
[2021-08-20 20:37] LABS: COVID19 -Nasal RAPID Negative (Negative)
[2021-08-20 23:03] LABS: Creatine Kinase 382 U/L (30-135); Magnesium 1.9 mg/dL (1.6-2.3)
[2021-08-21] MEDS: LORazepam 0.5 MG TABLET 1 MG PO (00:06)
--- NOTE | 2021-08-21 00:15 | PC.NURSE ---
Pt trying to leave department. This VAMP STITCHER able to re direct Pt back to room.
--- NOTE | 2021-08-21 09:21 | DI.CT.S_ITS ---
PROCEDURE: CT HEAD/BRAIN WO CON INDICATIONS: Psychotic break TECHNIQUE: Noncontrast 4.5 mm thick angled axial sections acquired from the foramen magnum to the vertex, with coronal and sagittal reformats. For radiation dose reduction, the following was used: automated exposure control, adjustment of mA and/or kV according to patient size. COMPARISON: None. FINDINGS: Image quality: Excellent. CSF spaces: Basal cisterns are patent. No extra-axial fluid collections. Ventricles are normal in size and shape. Brain: No midline shift. No intracranial masses or hemorrhage. Hernández-white matter interface is normal. Skull and face: Calvarium and visualized facial bones are intact, without suspicious lesions. Sinuses: Visualized sinuses and mastoids are clear. IMPRESSION: Normal head CT. Dictated by: Ethan Adkins M.D. on 08/21/2021 at 9:36 Approved by: Ethan Adkins M.D. on 08/21/2021 at 9:39
--- NOTE | 2021-08-21 09:34 | PC.NURSE ---
Accompanied patient to CT scan where she was calm and cooperative. Patient was then given breakfast tray.
--- NOTE | 2021-08-21 09:47 | PC.NURSE ---
head ct results faxed to [facility] as requested by psych for our seeking admission
--- NOTE | 2021-08-21 10:34 | PC.NURSE ---
[address]4[facility] and will accept patient F/U with Cristiane @0800 [phone] [facility] DCR [phone] aware. [phone] [facility] will update after transport set up Violette recieving physican
--- NOTE | 2021-08-21 11:16 | PC.NURSE ---
Openly taken to bathroom to change into green scrubs, brush teeth, and clean up
--- NOTE | 2021-08-21 11:28 | PC.NURSE ---
Patient relaxed and laying down
[2021-08-21 11:30] VITALS: BP 101/60; PULSE 62; RESP 20; TEMP 37.2; O2SAT 99
--- NOTE | 2021-08-21 12:13 | PC.NURSE ---
Paramedics arrived to transport patient to [facility]
[2021-08-21 13:00] VITALS: BP 120/67; PULSE 68; RESP 20; TEMP 37.1; O2SAT 99
--- NOTE | 2021-08-21 13:17 | CM.SWNOTE ---
HOP WORKER Note Patient has been assessed and detained by MARYANNE Almanza prior to HOP WORKER's arrival to work. Patient is 41 y/o female who presented to ED last evening via EMS due to concerns for acute psychosis and danger to self, patient was found laying in the road on [facility] [facility]. HOP WORKER speaks with MARYANNE Almanza after calling [facility], as patient's EMS transportation to accepting hospital [facility] has arrived to transport patient. Cami gives HOP WORKER permission to serve patient detainment paperwork as Cami is not on shift currently. HOP WORKER enters room to meet with patient, patient wakes up from sleeping and HOP WORKER provides paperwork to patient and puts it in patient's belongings. Patient indicates agreement and understanding that she is going to be transported to another hospital. Plan: patient to transfer to [facility] via EMS for SHE[facility] placement. Farhana Conley, TUB CHUCKER
--- NOTE | 2021-08-21 13:23 | PC.NURSE ---
Patient fully cooperative and taken by EMS to [facility]
== END 2021-08-21 13:29 | disposition short-term general hospital (02) ==
PROVIDERS: Emergency Medicine; Emergency Provider Emergency Medicine
DX: F23 Brief psychotic disorder (principal); Z20.822 Contact with and (suspected) exposure to COVID-19
CPT/HCPCS: 36415; 70450; 80053; 80305; 80320; 80329; 81003; 81015; 81025; 82550; 82962; 83735; 84443; 84703; 85025; 87635; 93005; 93010; 99285; C9803; G0480